=== PATIENT | female | born 1960 | race Two or more races ===

== ENCOUNTER 2021-01-27 18:02 | Emergency (ER) | payer MEDICAID, SELFPAY ==
[~2021-01-27] VITALS: Ht 147.3 cm; Wt 65.0 kg
--- NOTE | 2021-01-27 18:11 | NUR ---
PT BIB EMS FOR ONSET ABDOMINAL PAIN W N/V/D. PT STATES SHE WAS EATING SOUP. TENDER IN ALL QUADRENTS TO PALPATION. DENIES CP OR SOB. ZOFRAN PRIOR TO EMS.
[2021-01-27] MEDS ORDERED: SODIUM CHLORIDE FLUSH 10ML SYR IVF ONE (18:30)
[2021-01-27] MEDS ORDERED: ONDANSETRON 2MG/ML, 2ML IVPush ONE (18:30)
--- NOTE | 2021-01-27 18:30 | NUR ---
AT BEDSIDE FOR ASSESSMENT
[2021-01-27] MEDS ORDERED: ONDANSETRON 2MG/ML, 2ML ONE (18:42)
--- NOTE | 2021-01-27 18:52 | NUR ---
First contact with patient, pt c/o abd pain generalized comes and goes. Pt states also nauseated, medicated per order with zofran. Requested pt walk to bathroom for urine sample, pt states she can't now. VSS. Labs drawn, CXR done. Pending urine and further orders. Will continue to monitor. AIDET provided.
[2021-01-27 18:53] LABS: BASOPHILS % (AUTO) 1 % (0-1); EOSINOPHILS % (AUTO) 4 % (1-7); LYMPHOCYTES % (AUTO) 31 % (22-44); MEAN CORPUSCULAR HEMOGLOBIN 31.8 pg (27.0-34.8); MEAN CORPUSCULAR HGB CONC 35.2 g/dL (32.4-35.8); MEAN PLATELET VOLUME 8.7 fL (7.4-10.4); MONOCYTES % (AUTO) 6 % (2-9); NEUTROPHILS % (AUTO) 59 % (42-75); PLATELET COUNT 187 x10^3/uL (130-400); RED BLOOD COUNT 5.32 x10^6/uL (3.82-5.3); RED CELL DISTRIBUTION WIDTH 13.5 % (9.6-15.2)
[2021-01-27 18:54] VITALS: BP 123/48
[2021-01-27 19:02] LABS: ALBUMIN 3.6 g/dL (3.4-5.0); ANION GAP 6 mmol/L (5-15); CALCIUM 9.2 mg/dL (8.5-10.1); CHLORIDE 108 mmol/L (98-107)
[2021-01-27 19:04] LABS: ALANINE AMINOTRANSFERASE 25 U/L (12-78); ALKALINE PHOSPHATASE 115 U/L (45-117); BILIRUBIN,TOTAL 0.6 mg/dL (0.2-1.0); CREATININE 0.66 mg/dL (0.55-1.02); TOTAL PROTEIN 7.7 g/dL (6.4-8.2); TROPONIN I < 0.015 ng/mL (0.000-0.045)
--- NOTE | 2021-01-27 19:16 | NUR ---
Pt with friend at bedside, encouraged urine sample. Pt states can not go. Waiting for ERP evaluation.
--- NOTE | 2021-01-27 19:37 | NUR ---
Pt states has no more pain since [place]ton, says she feels a lot better and is walking to bathroom for urine sample. Pt friend has been at bedside.
[2021-01-27 20:03] LABS: MICROSCOPIC INDICATED
[2021-01-27] MEDS ORDERED: OMNIPAQUE 350 MG/ML, 100ML BOTTLE ONE (20:23)
--- NOTE | 2021-01-27 20:50 | NUR ---
Called lab to request 2nd set bc be drawn prior to hanging abx. Pt VSS. NAD, RR equal and unlabored.
[2021-01-27] MEDS ORDERED: POTASSIUM CHLORIDE 20 MEQ TAB.ER.PRT PO ONE (21:00)
[2021-01-27] MEDS ORDERED: CEFTRIAXONE 1,000 MG in DEXTROSE 5% 50 ML IVPB ONE (21:00)
[2021-01-27] MEDS ORDERED: POTASSIUM CHLORIDE 20 MEQ TAB.ER.PRT ONE (21:49)
--- NOTE | 2021-01-27 21:53 | NUR ---
dc home after abx and kdur. vss iv dc cath intact, pt verbalizes understanding of instruct and f/u. to return to er if worse or concerfns.
== END 2021-01-27 21:54 | disposition home or self-care (01) ==
LOC: ED 20:23
DX: N39.0 Urinary tract infection, site not specified (principal); R10.33 Periumbilical pain; D72.829 Elevated white blood cell count, unspecified; E87.6 Hypokalemia; R11.2 Nausea with vomiting, unspecified
CPT/HCPCS: 36415; 71045; 74177; 80053; 81001; 83605; 83690; 84484; 85025; 87086; 93005; 96365; 96375; 99285; J0696; J2405; Q9967; 87186